=== PATIENT | male | born 1950 | race Caucasian/White ===

== ENCOUNTER 2020-07-06 10:05 | Day surgery (SDC) | payer MEDICARE, SELFPAY ==
--- NOTE | 2020-07-05 15:19 | PCM.HP.BLA ---
History and Physical Date of Admission: 07/06/20 HISTORY AND PHYSICAL ? Jeremías Sheikh 1950 ? ? REFERRING PHYSICIAN: Prakash Morales, DO ? CHIEF COMPLAINT: Consultation for port placement ? HPI: The patient is a 69 year old adult with a diagnosis of lung cancer. Jeremías is currently scheduled to undergo chemotherapy and needs vascular access for treatment. The patient denies a prior history of central venous access. The patient is being seen by me today at the request of Dr. Morales for my opinion and advice regarding port placement. ? Patient notes during visit that he has been having increased cough and that he is starting to feel 'like when I had pneumonia. Patient had called in to Dr. Morales with these symptoms and was initiated on Levaquin. Denies fever or chills. ? ? PAST MEDICAL HISTORY ? Arthritis ? ? COPD (chronic obstructive pulmonary disease) (HCC) ? ? HLD (hyperlipidemia) ? ? HTN (hypertension) ? ? Neuropathy ? ? Obesity ? ? Shingles ? ? Squamous cell lung cancer, right (HCC) ? ? TB lung, latent ? ? ? PAST SURGICAL HISTORY ? BRONCHOSCOPY WITH BIOPSY ? ? ? CARPAL TUNNEL ? ? ? CATARACT EXTRACTION HX ? ? ? KNEE ARTHROSCOPY ? ? ? SHOULDER SURGERY HX Left ? CURRENT MEDICATIONS ? levoFLOXacin (LEVAQUIN) 500 mg tablet Take 1 tablet by mouth once daily for 3 days. 3 tablet 0 ? iv contrast (will be provided with radiology test) CT Chest ABD/PEL-Inject, intravenously, once for 1 dose.No IV access, insert saline lock prior to the beginning of sedation, infusion, injection of imaging exam. Discontinue saline lock post exam. If Pt. has a central line or IVAD, may access for administration according to line specific nursing protocol. Once exam is complete flush line and de-access according to line specific nursing protocol in the CT contrast administration guidelines link. 1 Each 0 ? enteric contrast (will be provided with radiology test) For CT CHESTABD/PEL W IVCON Routine order Administer, As Directed One Time Only, via Oral, Rectal, both Oral and Rectal, Enteric Tube, Stoma or Indwelling Catheter, Enteric Contrast as designated per enteric contrast guidelines 1 Each 0 ? perflutren lipid microspheres (DEFINITY) 1.1 mg/mL injection (to be provided with echo procedure) Inject 1.3 mL intravenously as directed. Administration Instructions: If no IV access, insert saline lock prior to administering contrast. Discontinue saline lock post exam. If patient has central line or IVAD, may access for administration according to line specific nursing protocol. Once exam is complete, flush line and de-access per line specific nursing protocol. Diluted IV Bolus: Dilute 1.3 ml of Definity with 8.7 ml of preservative-free saline 1.3 mL 0 ? OTC PRODUCT prevagen ? ? ? pravastatin (PRAVACHOL) 10 mg tablet Take 10 mg by mouth daily at bedtime. ? ? ? ondansetron (ZOFRAN) 8 mg tablet Take 1 tablet by mouth every 8 hours as needed for Nausea/Vomiting. 30 tablet 2 ? verapamil ER (VERELAN) 240 mg 24 hr capsule Take 1 tablet by mouth once daily. ? ? ? acyclovir (ZOVIRAX) 400 mg tablet Take 400 mg by mouth twice daily. ? ? ? albuterol HFA (VENTOLIN HFA) 90 mcg/actuation inhaler Inhale 2 Inhalation as instructed every 4 hours as needed. ? ? ? budesonide-formoterol (SYMBICORT) 160-4.5 mcg/actuation inhaler Inhale 2 Puffs as instructed twice daily. ? ? ? cholecalciferol (VITAMIN D3) 1,000 unit tab tablet Take 1 tablet by mouth twice daily. ? ? ? gabapentin (NEURONTIN) 400 mg capsule Take 400 mg by mouth three times daily. ? ? ? loratadine (CLARITIN) 10 mg tablet Take 1 tablet by mouth once daily. ? ? ? losartan (COZAAR) 50 mg tablet Take 1 tablet by mouth once daily. ? ? ? sildenafil (VIAGRA) 50 mg tablet Take 1 tablet by mouth as needed. ? ? ? tiotropium (SPIRIVA) 18 mcg inhalation capsule Inhale 1 capsule as instructed once daily. with HandiHaler ? ALLERGIES: Varenicline ? PERSONAL HISTORY: SOCIAL HISTORY Social History ? Tobacco Use ? Smoking status: Former Smoker ? ? Packs/day: 1.50 ? ? Years: 50.00 ? ? Pack years: 75.00 ? ? Types: Cigarettes ? ? Quit date: 10/19/2011 ? ? Years since quittin.6 ? Smokeless tobacco: Never Used Substance Use Topics ? Alcohol use: Yes ? ? Comment: Occasional ? Drug use: Never ? FAMILY HISTORY: FAMILY HISTORY FAMILY HISTORY Problem Relation Age of Onset ? Stroke Father ? ? Hypertension Father ? ? other (Lung Cancer) Father ? ? Diabetes Brother ? ? Hypertension Brother ? ? Breast Cancer Maternal Aunt ? ? ? REVIEW OF SYMPTOMS: The review of systems data was entered by the nurse and reviewed by me ? Nursing Notes: Maxwell Lomeli REVIEW OF SYSTEMS: General: The patient NOTES fatigue, denies weight loss, denies weight gain, denies feeling hot, and denies feelings of cold. Eyes: The patient denies glaucoma, NOTES eye injury/surgery, wears glasses or contacts. Ear/Nose/Throat: The patient NOTES allergies, denies hayfever, denies ear infections, and denies bloody noses. Cardiovascular: The patient denies chest pain, denies heart disease, NOTES high blood pressure,denies cardiac stent, denies prior heart attack, denies irregular heart beat, NOTES high cholesterol, denies poor circulation, denies heart failure, other cardiac issues, denies claudication, NOTES cold feet, denies peripheral arterial stent. Respiratory: The patient denies tuberculosis, NOTES pneumonia, NOTES frequent cough, denies pulmonary embolism, NOTES shortness of breath, and denies coughing up blood. Gastrointestinal: The patient denies difficulty swallowing, denies acid reflux, denies ulcers, denies vomiting, denies jaundice/hepatitis, denies gallbladder problems, denies black or tarry stools, denies hemorrhoids, denies bleeding from rectum, denies diverticulitis, denies constipation, denies diarrhea, denies loss of stool control, and NOTES hernias. Kidney/Bladder: The patient denies kidney stones, denies urine infections, and denies bloody urine. Skin: The patient denies a history of skin cancer, denies bleeding/changing moles, and denies a history of skin rash. Neurologic: The patient denies a history of epilepsy/convulsions, denies headaches, denies head/spinal injuries, and denies stroke/TIA. Psychiatric: The patient denies psychiatric medications, denies depression, and denies voices, denies substance abuse. Endocrine: The patient denies thyroid disorders, denies diabetes, and denies hormonal problems. Hematologic: The patient denies a history of bruising, denies bleeding, and denies anemia, denies blood clots. Infections: The patient NOTES a history of measles and mumps, denies rheumatic fever, and denies sexually transmitted diseases. Musculoskeletal: The patient NOTES back pain/injury, denies back problems, denies sciatica, NOTES knee/foot trouble, denies arthritis, or denies gout. ? ? When was patient's last Mammogram screening? N/A ? Last Colonoscopy: 2017 ? Maxwell Lomeli I have confirmed and edited as necessary, the PFSH and ROS obtained by others. ? PHYSICAL EXAMINATION: ? General: The patient is 69 year old adult, well nourished, well hydrated in no acute distress. The patient is oriented to time, place, and person. ? VITALS: Blood pressure 112/62, pulse 84, temperature 36.7 ?C (98.1 ?F), height 172.7 cm (5' 8), weight 101.4 kg (223 lb 9.6 oz), SpO2 93 %. Body mass index is 34 kg/m?. ? HEENT: Normal cephalic, ataumatic, pupils are equally round, sclera are anicteric, mucous membranes are moist, oropharynx is clear. Neck has no masses, asymmetry or lymphadenopathy. Thyroid is unremarkable. ? Respiratory: Clear to auscultation and percussion. Normal respiratory excursion and pattern. ? Cardiac: Examination is regular rate and rhythm. ? Abdominal exam: Soft, nontender, with no palpable masses. No hepatosplenomegaly. No palpable hernias. ? Rectal exam: exam deferred ? Extremities: no clubbing, cyanosis or edema. No adenopathy. ? Other: ? ? LABORATORY VALUES: As Noted ? RADIOLOGIC STUDIES: As Noted ? IMPRESSION: Lung cancer, need for IV access. Current upper respiratory symptoms and history of pneumonia ? PLAN: The planned surgical procedure was discussed extensively with the patient. The risks, benefits, anticipated outcomes and possible complications were mentioned. My staff has also explained the procedure in understandable terms and the patient was given the option to take printed material concerning the planned procedure. The patient had the opportunity to ask questions concerning the planned procedure. The patient freely consents to the planned procedure. Patient has been counseled as to the risks/benefits of the procedure. I have explained the risks of the surgery, including but not limited to: infection, bleeding, injury to any blood vessels/nerves, injury to lungs (such as pneumothorax or hemothorax and need for chest tube), not having any access, nonfunctioning of port due to thrombosis, infection of port, etc. ? the patient understands and agrees to proceed. I have answered all of the patient's questions to the patient?s satisfaction and the patient has no further questions. ? [facility] [id number] ? Patient Weight Last 1 Encounter Wt Readings: Date: Wt: 06/12/2020 100.2 kg (221 lb) ? Antibiotic: Ancef 2gm IVPB telephone order supervisor to OR ? Planned Anesthetic: MAC with local ? Dr. Kumar plan to access the port at the time of surgery. ? The patient was offered a surgery/procedure I have counseled the patient regarding the risk of exposure to and/or potential harm posed by the COVID-19 virus with having a surgery/procedure at this time versus the risk of? delaying the surgery/procedure. It is not possible to know either the risk of delaying the surgery or procedure or chance of getting an infection with perfect accuracy, but a joint decision was made between the patient and myself?to proceed at this time with endoscopy. ? ? Diagnoses: (C33, C34.80) Cancer of trachea, bronchus, and lung (HCC) (primary encounter diagnosis) (Z01.818) Preop testing ?
[2020-07-06] VITALS (7 sets, daily range): BP systolic 116–129; BP diastolic 64–79; PULSE 70–88; RESP 16; TEMP 36.1–36.7; O2SAT 93–96; BMI 33.7
[2020-07-06] MEDS: Lactated Ringers 1,000 ML 75 ML IV (10:54)
[2020-07-06] MEDS: Cefazolin 2 GM in 0.9% Normal Saline 100 ML IV (12:00)
--- NOTE | 2020-07-06 12:50 | OP.PCM_ITS ---
Report of Operation Date of Procedure: 07/06/20 Pre-Operative Diagnosis: lung cancer, need for IV access Post-Operative Diagnosis: same Surgery/Procedure Performed:: placement of permanent indwelling tunneled catheter in right subclavian vein with subcutaneous port Description of Surgical Findings:: normal right subclavian anatomy to SVC Type of Anesthesia:: Local MAC Anesthesiologist: Abilio Pritchard Specimen's removed: none Estimated Blood Loss (mL): < 5 ml Fluids Replaced: 200 ml RL Description of Procedure: After informed consent was given, the patient was brought to the Operating Room. Appropriate time out protocol was followed. The patient was then placed in the supine position. The patient was then given IV conscious sedation for anesthesia. The patient?s upper chest and neck were then prepped with a surgical skin preparation and sterile surgical drapes were placed. After proper landmarks were ascertained, the skin at the upper right chest area was then infiltrated with 1% xylocaine with epinephrine. A needle trocar was then inserted into the right subclavian vein and there was good aspiration of venous blood. A wire was then threaded into the needle trocar and this was visualized under fluoroscopy to ensure that the wire was in the right subclavian vein. Once this was done, then the needle trocar was removed. A small skin quentin was made with an 11 blade knife at the wire entrance site. The dilator with the introducer sheath attached was then placed over the wire into the right subclavian vein via the Seldinger technique and this was visualized under fluoroscopy. The dilator and sheath were in proper position as visualized by fluoroscopy in real time. The wire and dilator were then removed. The catheter was then threaded into the introducer sheath and was positioned with its tip at the junction of the superior vena cava and the right atrium as visualized under fluoroscopy in real time. I personally reviewed all of the above fluoroscopic images and noted that the positions of the wire and catheter were correct so that the next step could be conducted. The catheter was flushed with a heparin saline mixture prior to placement. A subcutaneous pocket was then created caudad to the catheter insertion site. A transverse skin incision was made a fter the skin and subcutaneous tissues were infiltrated with local anesthetic. Blunt dissection was then used to create a space large enough for placement of the subcutaneous port. Hemostasis was carefully controlled with electrocautery. The port was sutured to the subcutaneous fascia using vicryl suture at three sites. The catheter was then tunneled into the subcutaneous pocket. The excess catheter was transected. The catheter was then attached to the subcutaneous port using lead section supervisor?s guidelines. The port was then placed in the subcutaneous pocket and the sutures were ligated. The subdermal incisional sites were reapproximated with interrupted vicryl suture. The skin was reapproximated with monocryl suture in a subcuticular fashion. Cavilon and steristrips were used for reinforcement of the skin closure and a sterile opsite dressing was applied. Sponge, needle, and instrument count were verified and correct at the time of skin closure. The patient was brought to the Recovery Room in stable condition Grafts/Implants Used: PowerPort Lot [id number] exp 2021-08-18 - Complications none noted - Admit VTE Documentation VTE Present on Admission: Yes VTE Mechan Device Prophylaxis: SCD's
--- NOTE | 2020-07-06 13:00 | RAD_ITS ---
STUDY: X-RAY CHEST REASON FOR EXAM: Male, 70 years old. POST PORT INSERTION TECHNIQUE: Port insertion. COMPARISON: None. FINDINGS: A right-sided juni catheter has been placed. The tip is at the junction of the superior vena cava and right atrium. There is evidence of a 8.8 cm x 6.8 cm left perihilar mass extending into the left upper lobe. Hyperinflation. There is borderline cardiomegaly. Normal mediastinum and ester. Normal visualized pulmonary arteries. Normal visualized aortic arch and descending thoracic aorta. There are diffuse degenerative changes of the visualized thoracic spine. Normal visualized ribs, clavicles, and shoulders. There is no demonstrated abnormality of the visualized soft tissue structures of the upper abdomen. RAD/CXR for Line Placement IMPRESSION: The tip of the right juni catheter is at the junction of the superior vena cava right atrium. Large left perihilar mass extending into the left upper lobe. Electronically Signed: Tyshawn Genao, at 13:23 EDT , Service support ,
--- NOTE | 2020-07-06 13:39 | PCM.DC.POR ---
Discharge Diet: No Restrictions Discharge Activity: Return to Normal Activity, May not drive while taking narcotic pain medications. Call your doctor if your incision/area has: Continuous Slow Oozing, Foul Smelling Discharge Call your doctor if you observe: Fever of 101 or Higher Additional Instructions: Recommended pain control regimen - May take 600 mg ibuprofen (Motrin) and then in 3-4 hours, may take 650 mg acetaminophen (Tylenol), then in 3-4 hours may take 600 mg ibuprofen, then in 3-4 hours may take 650 mg acetaminophen and so on for 2-3 days May take narcotic pain medication for pain that is not controlled by above and at night for comfort through the night Leave dressings in place May get dressings wet in shower - do not scrub in the area and pat dry Do not soak - no tub baths/swimming If dressing appears to be soiled/open at one end/no longer sealed - may remove dressing but leave site uncovered (do not replace with any type of dressing) - leave steristrips in place - may get wet but do not scrub in the area and pat dry May apply ice packs to area for comfort Allergies/Adverse Reactions: Allergies varenicline [From Chantix] Allergy (Verified 07/06/20 10:33) Itching Medications to take at Discharge Acyclovir [Zovirax] 400 mg PO BID 06/07/20 Albuterol IH (ProAir) [Proair Hfa (SP)Vent Pts] 1 - 2 puff INHALATION Q6H PRN PRN 06/07/20 Budesonide/Formoterol 160/4.5 [Symbicort 160/4.5 Mcg Inhaler (SP)] 2 puff INHALATION BID 06/07/20 Cholecalciferol (VIT D3) [Vitamin D] 1,000 unit PO BID 06/07/20 Gabapentin [Neurontin] 400 mg PO TID 06/07/20 Guaifenesin [Mucinex] 600 mg PO BID PRN 06/07/20 Losartan Potassium [Cozaar] 50 mg PO DAILY 06/07/20 Ondansetron [Zofran] 8 mg PO Q8H PRN PRN 06/07/20 Pervergan 10 mg PO DAILY 06/07/20 Pravastatin Sodium 10 mg PO QHS 06/07/20 Tiotropium [place] [Spiriva 18 MCG] 2 puff INHALATION 1500 06/07/20 Verapamil HCl [Verapamil ER] 240 mg PO DAILY 06/07/20 Loratadine [Claritin] 10 mg PO PRN PRN 06/29/20 Multivitamin with Minerals [Multiple Vitamin] 1 ea PO DAILY 06/29/20 Hydrocodone Bitart/Apap 5-325 [[place] 5MG-325MG] 1 tablet PO Q8H PRN PRN 2 Days #6 tablet 07/06/20 The following prescriptions were given: Hydrocodone Bitart/Apap 5-325 [[place] 5MG-325MG] 1 tablet PO Q8H PRN PRN 2 Days #6 tablet PRN Reason: Pain Transmission Status: Sent to [facility] Orders to be completed after discharge: CORONAVIRUS 19, KALE SENDOUT Time Frame: 06/08/20, Facility: [facility], Location: Laboratory [facility] Phys[facility] [Primary Care Provider] - Test Results: Test results from this visit will be discussed in further detail at your follow-up appointment, if applicable. Please Follow Up With: Antonette Kumar MD - call if any problems/concerns When: to follow up in the Hem/Onc clinic
== END 2020-07-06 14:11 | disposition home or self-care (01) ==
LOC: SDC 10:08 → AC 10:09
PROVIDERS: Referring Provider Surgery; Visit Provider Surgery
PROC: (CPT 36561; principal; 2020-07-06 11:45)
DX: Z45.2 Encounter for adjustment and management of vascular access device (principal); C34.91 Malignant neoplasm of unspecified part of right bronchus or lung; J44.9 Chronic obstructive pulmonary disease, unspecified; E66.9 Obesity, unspecified; E78.5 Hyperlipidemia, unspecified; I10 Essential (primary) hypertension; G62.9 Polyneuropathy, unspecified; M19.90 Unspecified osteoarthritis, unspecified site; Z79.899 Other long term (current) drug therapy; Z79.51 Long term (current) use of inhaled steroids; Z87.891 Personal history of nicotine dependence
CPT/HCPCS: 00532; 36561; 71045; 77001; J7050; J7120; C1788